=== PATIENT | female | born 1995 | race Caucasian/White ===

== ENCOUNTER 2016-10-16 13:21 | Emergency (ER) | payer OTHER ==
[2016-10-16 14:14] VITALS: BP 121/60
--- NOTE | 2016-10-16 15:00 | UC ---
Complaint Female HPI - HPI Summary HPI Summary: Patient has been having some dysuria, lower abdominal pain, itching. admits to unprotected sex. has been going on for a few days. - History Of Current Complaint Chief Complaint: [facility]U Stated Complaint: URINARY COMPLAINT Time Seen by Provider: 10/16/16 14:36 Hx Obtained From: Patient Hx Last Menstrual Period: 09/10/16 ?: No Onset/Duration: Sudden Onset, Lasting Days Timing: Constant Severity Initially: Mild Severity Currently: Moderate Character: Burning, Cramping Aggravating Factor(s): Urination Associated Signs And Symptoms: Positive: Vaginal Discharge - Risk Factors Ectopic Risk Factor: Negative Ovarian Torsion Risk Factor: Negative - Allergies/Home Medications Allergies/Adverse Reactions: Allergies Allergy/AdvReac Type Severity Reaction Status Date / Time No Known Allergies Allergy Verified 10/16/16 14:06 PMH/Surg Hx/FS Hx/Imm Hx Previously Healthy: Yes - Surgical History Surgical History: Yes Surgery Procedure, Year, and Place: abdominal surgery as an infant - Family History Known Family History: Negative: Cardiac Disease, Hypertension - Social History Alcohol Use: Weekly Substance Use Type: None Smoking Status (MU): Never Smoked Tobacco Review of Systems Constitutional: Negative Skin: Negative Eyes: Negative ENT: Negative Respiratory: Negative Cardiovascular: Negative Gastrointestinal: Abdominal Pain Genitourinary: Dysuria Motor: Negative Neurovascular: Negative Musculoskeletal: Negative Neurological: Negative Psychological: Anxious All Other Systems Reviewed And Are Negative: Yes Physical Exam Triage Information Reviewed: Yes Appearance: Well-Appearing, Well-Nourished, Pain Distress Vital Signs: Initial Vital Signs Temp 97.8 F 10/16/16 14:06 Pulse 78 10/16/16 14:06 Resp 16 10/16/16 14:06 BP 121/60 10/16/16 14:06 Pulse Ox 100 10/16/16 14:06 Vital Signs Reviewed: Yes Eye Exam: Normal ENT: Positive: Hearing grossly normal, Pharynx normal, TMs normal Dental Exam: Normal Neck exam: Normal Neck: Positive: Supple, Nontender, No Lymphadenopathy Respiratory Exam: Normal Respiratory: Positive: Chest non-tender, Lungs clear, Normal breath sounds Cardiovascular Exam: Normal Cardiovascular: Positive: RRR, No Murmur, Pulses Normal Abdominal Exam: Normal Abdomen Description: Positive: Nontender, No Organomegaly, Soft, Other: - pelvic : perinuem shaved, some small pustules and folliculitis noted, area is red and irritated, no blisters or other lesions noted, vaginal wall coated with thick green and white discharge. no cervical motion tenderness, no masses noted Bowel Sounds: Positive: Present Musculoskeletal Exam: Normal Musculoskeletal: Positive: Strength Intact, ROM Intact, No Edema Neurological Exam: Normal Neurological: Positive: Alert, Muscle Tone Normal Psychological Exam: Normal Skin Exam: Normal Complaint Female Dx - Course Course Of Treatment: hx obtained, exam performed, meds reviewe, Urine neg, UA pos for +1 blood, pelvic performed, treated with azithromycin and rocephin, and diflucan. cultures obtained. - Differential Dx/Diagnosis Differential Diagnosis/HQI/PQRI: Sexually Transmitted Disease, Ureteral Stone, Urinary Tract Infection Provider Diagnoses: dysuria. vaginal discharge. vaginitis. possible STD Discharge - Discharge Plan Condition: Stable Disposition: HOME Patient Education Materials: Sexually Transmitted Diseases (ED), Condom Use (ED ), Safe Sex (ED) Additional Instructions: 1. you were treated for gonnohrea and chlamydia 2. Cultures were obtained and any positive results we will notify you by phone. 3. I recommend that you start getting routine gynological exams. 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
[2016-10-16] MEDS ORDERED: Azithromycin TAB* 250 MG PO ONE (15:16)
[2016-10-16] MEDS ORDERED: cefTRIAXone VIAL(*) 250 MG VIAL IM ONE (15:17)
[2016-10-16] MEDS ORDERED: Lidocaine 1% MPF* 2 ML VIAL INJ ONE (15:18)
[2016-10-16] MEDS ORDERED: cefTRIAXone VIAL(*) 1,000 MG VIAL ONE (15:29)
[2016-10-16] MEDS ORDERED: Lidocaine 1%* 5 ML VIAL ONE (15:31)
== END 2016-10-16 16:12 | disposition home or self-care (01) ==
LOC: UCCORT 13:21
DX: N76.0 Acute vaginitis (principal); R30.0 Dysuria; Z32.02 Encounter for pregnancy test, result negative
CPT/HCPCS: 81003; 84702; 87480; 87491; 87510; 87591; 87661; 96372; 99203; A9270-GY; G0463; J0696